=== PATIENT | female | born 1965 | race American Indian/Alaskan Native ===

== ENCOUNTER 2019-02-24 02:37 | Emergency (ER) | payer OTHER ==
[2019-02-24] MEDS ORDERED: HYDROcodone/ACETAMINOPHEN 5-325 MG TAB PO ONE (08:41)
[2019-02-24] MEDS ORDERED: CYCLOBENZAPRINE 10 MG TAB PO ONE (08:41)
[2019-02-24 08:56] VITALS: BP 125/82
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
--- NOTE | 2019-02-24 10:01 | XRay Report ---
CHEST 2 VIEWS INDICATION: Chest pain. COMPARISON: None FINDINGS: Support devices: None. Heart: Within normal limits. Lungs/pleura: No acute air space or interstitial disease. No pneumothorax. Additional findings: None. IMPRESSION: No acute findings. Signer Name: Justen Blanc Jr, MD Signed: 02/24/2019 9:56 AM Workstation Name: [id number]
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
== END 2019-02-24 10:26 | disposition home or self-care (01) ==
LOC: ED 02:37
DX: M79.602 Pain in left arm (principal); M54.2 Cervicalgia; F17.200 Nicotine dependence, unspecified, uncomplicated; J45.909 Unspecified asthma, uncomplicated; Z90.710 Acquired absence of both cervix and uterus; Z98.890 Other specified postprocedural states; Z79.899 Other long term (current) drug therapy; V49.49XA Driver injured in collision with other motor vehicles in traffic accident, initial encounter; Y93.89 Activity, other specified; Y92.488 Other paved roadways as the place of occurrence of the external cause; Y99.8 Other external cause status
CPT/HCPCS: 71046; 72040